=== PATIENT | male | born 1995 | race Caucasian/White ===

== ENCOUNTER 2018-05-10 13:46 | Emergency (ER) | payer OTHER ==
[~2018-05-10] VITALS: Ht 172.7 cm; Wt 54.4 kg
[2018-05-10] MEDS ORDERED: HYDHCL25 PO (14:13)
[2018-05-10] MEDS ORDERED: Permethrin60 GM TOP (14:13)
== END 2018-05-10 14:18 | disposition home or self-care (01) ==
LOC: ER 13:46
DX: B86 Scabies (principal)
CPT/HCPCS: 99283